=== PATIENT | male | born 1950 | race African-American/Black ===

== ENCOUNTER 2017-10-10 10:18 | Emergency (ER) | payer MEDICARE, MEDICAID ==
[~2017-10-10] VITALS: Ht 172.7 cm; Wt 64.0 kg
[~2017-10-10 10:18] MED LIST: vitamins
[2017-10-10] MEDS ORDERED: KETOROLAC 15MG/ML VIAL IV ONE (14:30)
[2017-10-10] MEDS ORDERED: SODIUM CHLORIDE 0.9% 500 ML IV ONE (14:30)
[2017-10-10 14:36] LABS: CLARITY URINE CLEAR (CLEAR); COLOR URINE YELLOW (YELLOW); KETONES URINE NEGATIVE (NEGATIVE); LEUKOCYTE ESTERASE URINE NEGATIVE (NEGATIVE); NITRITE URINE NEGATIVE (NEGATIVE); OCCULT BLOOD URINE NEGATIVE (NEGATIVE); PROTEIN URINE NEGATIVE (NEGATIVE); SPECIFIC GRAVITY URINE 1.012 (1.005-1.030)
[2017-10-10 15:04] LABS: BASOPHILS % 0.5 % (0.0-2.0); EOSINOPHILS % 2.1 % (0.0-5.0); HEMATOCRIT. 41.1 % (42.0-52.0); HEMOGLOBIN. 13.6 g/dL (14.0-18.0); LYMPHOCYTES % 38.6 % (20.0-50.0); MEAN CORPUSCULAR HEMOGLOBIN 28.8 pg (28.0-32.0); MEAN CORPUSCULAR VOLUME 86.8 fL (80.0-94.0); MEAN PLATELET VOLUME 9.5 fl (7.4-10.4); NEUTROPHILS % 48.8 % (40.0-76.0); PLATELET 186 x1000/uL (130-400); RED BLOOD CELL COUNT 4.73 mill/uL (4.7-6.1); RED CELL DISTRIBUTION WIDTH 13.4 % (11.6-14.6)
[2017-10-10 15:13] LABS: CHLORIDE 107 mEq/L (98-107)
[2017-10-10] MEDS ORDERED: MAGNESIUM HYDROXIDE 400MG/5ML 30ML UDC PO ONE (16:15)
[2017-10-10 17:14] VITALS: BP 142/79
== END 2017-10-10 17:29 | disposition home or self-care (01) ==
LOC: ER 11:01
DX: R33.8 Other retention of urine (principal); N20.0 Calculus of kidney; K59.00 Constipation, unspecified; N40.0 Benign prostatic hyperplasia without lower urinary tract symptoms; F20.9 Schizophrenia, unspecified; F17.200 Nicotine dependence, unspecified, uncomplicated; B19.20 Unspecified viral hepatitis C without hepatic coma
CPT/HCPCS: 36415; 74176; 80053; 81003; 85025; 96361; 96374; 99285; J1885; J7040; J7050

== ENCOUNTER 2018-07-21 07:19 | Inpatient (IN) | payer MEDICARE, MEDICAID ==
[~2018-07-21] VITALS: Ht 172.7 cm; Wt 49.0 kg
[2018-07-21] MEDS ORDERED: SODIUM CHLORIDE 0.9% 2,000 ML IV ONE (09:08)
[2018-07-21] MEDS ORDERED: ONDANSETRON HCL 4MG/2ML INJ IV ONE (09:15)
[2018-07-21 09:42] LABS: BASOPHILS % 0.3 % (0.0-2.0); EOSINOPHILS % 0.7 % (0.0-5.0); HEMATOCRIT. 47.2 % (42.0-52.0); HEMOGLOBIN. 16.2 g/dL (14.0-18.0); LYMPHOCYTES % 18.1 % (20.0-50.0); MEAN CORPUSCULAR HEMOGLOBIN 30.3 pg (28.0-32.0); MEAN CORPUSCULAR VOLUME 88.3 fL (80.0-94.0); MEAN PLATELET VOLUME 9.8 fl (7.4-10.4); MONOCYTES % 11.2 % (2.0-8.0); NEUTROPHILS % 69.7 % (40.0-76.0); PLATELET 214 x1000/uL (130-400); RED BLOOD CELL COUNT 5.35 mill/uL (4.7-6.1); RED CELL DISTRIBUTION WIDTH 12.8 % (11.6-14.6)
[2018-07-21 09:49] LABS: CHLORIDE 103 mEq/L (98-107)
[2018-07-21 09:54] LABS: ETHANOL BLOOD < 10 mg/dL; INR 1.1; PROTHROMBIN TIME 10.6 sec (9.1-11.1)
[2018-07-21] MEDS ORDERED: ASPIRIN 325MG TABLET PO ONE (10:45)
[2018-07-21] MEDS ORDERED: NA PHOS,M-B/NA PHOS,DI-BA ENEMA 118ML PR PRN (11:15)
[2018-07-21 16:19] LABS: CLARITY URINE CLEAR (CLEAR); COLOR URINE DARK YELLOW (YELLOW); KETONES URINE 1+ (NEGATIVE); LEUKOCYTE ESTERASE URINE NEGATIVE (NEGATIVE); NITRITE URINE NEGATIVE (NEGATIVE); OCCULT BLOOD URINE NEGATIVE (NEGATIVE); PH URINE 5.5 (4.5-8.0); PROTEIN URINE TRACE (NEGATIVE)
[2018-07-21 16:49] LABS: *AMPHETAMINES SCREEN URINE NEGATIVE (NEGATIVE); *BARBITURATES SCREEN URINE NEGATIVE (NEGATIVE); *BENZODIAZEPINES SCREEN URINE NEGATIVE (NEGATIVE); *COCAINE SCREEN URINE PRESUMTIVE POSITIVE (NEGATIVE)
[2018-07-21 16:50] LABS: CANNABINOID URINE SCREEN NEGATIVE (NEGATIVE); METHADONE URINE SCREEN NEGATIVE (NEGATIVE); OPIATES URINE SCREEN NEGATIVE (NEGATIVE); PHENCYCLIDINE URINE SCREEN NEGATIVE (NEGATIVE)
[2018-07-21 19:49] LABS: CREATINE KINASE MB FRACTION 3.8 ng/mL (0.5-3.6)
[2018-07-21] MEDS ORDERED: ZOLPIDEM TARTRATE 5MG TABLET PO PRN (21:00)
[2018-07-21] MEDS ORDERED: ENOXAPARIN 60MG/0.6ML SYR SUBCUT SCH (21:00)
[2018-07-21] MEDS ORDERED: TRAMADOL 50MG TABLET PO PRN (21:25)
[2018-07-21] MEDS ORDERED: NITROGLYCERIN 0.4MG TABLET SL SL PRN (21:25)
[2018-07-21] MEDS ORDERED: ACETAMINOPHEN 325MG TABLET PO PRN (21:25)
[2018-07-21] MEDS ORDERED: ONDANSETRON HCL 4MG/2ML INJ IV PRN (21:25)
[2018-07-21] MEDS ORDERED: MAGNESIUM/ALUMINUM HYDROXIDE/SIMETHICONE 30ML UDC PO PRN (21:26)
[2018-07-21] MEDS ORDERED: CLONIDINE 0.1MG TABLET PO PRN (21:26)
[2018-07-21] MEDS ORDERED: GUAIFENESIN 200MG/10ML SUGAR FREE UDC PO PRN (21:26)
[2018-07-21] MEDS ORDERED: DEXTROSE 50% WATER 50ML SYRINGE IV PRN (21:26)
[2018-07-21] MEDS ORDERED: IPRATROPIUM/ALBUTEROL 0.5-3(2.5)MG/3ML NEB INH PRN (21:26)
[2018-07-21 23:24] LABS: CREATINE KINASE MB FRACTION 3.2 ng/mL (0.5-3.6)
[2018-07-22 06:27] LABS: CHLORIDE 107 mEq/L (98-107)
[2018-07-22 06:32] LABS: HEMATOCRIT. 44.2 % (42.0-52.0); HEMOGLOBIN. 15.1 g/dL (14.0-18.0); MEAN CORPUSCULAR HEMOGLOBIN 30.1 pg (28.0-32.0); MEAN CORPUSCULAR VOLUME 88.2 fL (80.0-94.0); MEAN PLATELET VOLUME 9.9 fl (7.4-10.4); PLATELET 193 x1000/uL (130-400); RED BLOOD CELL COUNT 5.01 mill/uL (4.7-6.1); RED CELL DISTRIBUTION WIDTH 13.1 % (11.6-14.6)
[2018-07-22 08:26] LABS: PLATELET ESTIMATE NORMAL
[2018-07-22 10:11] VITALS: BP 140/84
[2018-07-22 10:22] VITALS: BP 140/84
[2018-07-22] MEDS ORDERED: MORPHINE SULFATE 4 MG/ML CPJ (NOT FOR IM USE) IV PRN (10:52)
[2018-07-22] MEDS ORDERED: ENOXAPARIN 60MG/0.6ML SYR SUBCUT SCH (11:15)
[2018-07-22] MEDS: BLOOD SUGAR DIAGNOSTIC STRIP TEST SCH ×3 (12:38→20:57)
[2018-07-22] MEDS: INSULIN LISPRO 100 UNITS/ML SUBCUT SCH ×3 (13:43→20:57)
[2018-07-22 13:45] VITALS: BP 135/77
[2018-07-22] MEDS: DUTASTERIDE 0.5MG CAPSULE PO SCH (13:46)
[2018-07-22] MEDS: TAMSULOSIN HCL 0.4MG SR CAPSULE PO SCH (13:46)
[2018-07-22] MEDS: ASPIRIN 325MG EC TABLET PO SCH (13:46)
[2018-07-22] MEDS: FAMOTIDINE 20MG TABLET PO SCH ×2 (13:46→20:56)
[2018-07-22] MEDS: METOPROLOL TARTRATE 25MG TABLET PO SCH ×2 (13:46→20:57)
[2018-07-22 15:36] VITALS: BP 120/76
[2018-07-22 20:00] VITALS: BP 119/74
[2018-07-22] MEDS: ENOXAPARIN 60MG/0.6ML SYR SUBCUT SCH (20:58)
[2018-07-23] VITALS: BP 124/71
[2018-07-23 04:00] VITALS: BP 124/71
[2018-07-23] MEDS: BLOOD SUGAR DIAGNOSTIC STRIP TEST SCH ×3 (06:45→21:57)
[2018-07-23] MEDS: INSULIN LISPRO 100 UNITS/ML SUBCUT SCH ×3 (07:15→21:00)
[2018-07-23 07:16] LABS: BASOPHILS % 0.6 % (0.0-2.0); EOSINOPHILS % 2.7 % (0.0-5.0); HEMATOCRIT. 43.3 % (42.0-52.0); HEMOGLOBIN. 14.8 g/dL (14.0-18.0); LYMPHOCYTES % 53.4 % (20.0-50.0); MEAN CORPUSCULAR VOLUME 87.6 fL (80.0-94.0); MEAN PLATELET VOLUME 9.7 fl (7.4-10.4); MONOCYTES % 13.2 % (2.0-8.0); NEUTROPHILS % 30.1 % (40.0-76.0); PLATELET 179 x1000/uL (130-400); RED BLOOD CELL COUNT 4.94 mill/uL (4.7-6.1); RED CELL DISTRIBUTION WIDTH 12.7 % (11.6-14.6)
[2018-07-23 08:00] VITALS: BP 112/70
[2018-07-23] MEDS: DUTASTERIDE 0.5MG CAPSULE PO SCH (09:30)
[2018-07-23] MEDS: TAMSULOSIN HCL 0.4MG SR CAPSULE PO SCH (09:30)
[2018-07-23] MEDS: METOPROLOL TARTRATE 25MG TABLET PO SCH ×2 (09:31→21:58)
[2018-07-23] MEDS: ASPIRIN 325MG EC TABLET PO SCH (09:31)
[2018-07-23] MEDS: FAMOTIDINE 20MG TABLET PO SCH ×2 (09:32→21:57)
[2018-07-23] MEDS: ENOXAPARIN 60MG/0.6ML SYR SUBCUT SCH ×2 (09:32→21:58)
[2018-07-23 12:00] VITALS: BP 119/69
[2018-07-23 14:51] LABS: CHLORIDE 106 mEq/L (98-107)
[2018-07-23 16:00] VITALS: BP 123/68
[2018-07-23 20:00] VITALS: BP 112/60
[2018-07-24] VITALS (7 sets, daily range): BP systolic 115–144; BP diastolic 68–86
[2018-07-24] MEDS: BLOOD SUGAR DIAGNOSTIC STRIP TEST SCH ×4 (06:31→20:38)
[2018-07-24] MEDS: INSULIN LISPRO 100 UNITS/ML SUBCUT SCH ×4 (06:32→20:38)
[2018-07-24 08:04] LABS: BASOPHILS % 0.5 % (0.0-2.0); EOSINOPHILS % 2.5 % (0.0-5.0); HEMATOCRIT. 39.2 % (42.0-52.0); HEMOGLOBIN. 13.6 g/dL (14.0-18.0); LYMPHOCYTES % 29.3 % (20.0-50.0); MEAN CORPUSCULAR HEMOGLOBIN 30.3 pg (28.0-32.0); MEAN CORPUSCULAR VOLUME 87.2 fL (80.0-94.0); MONOCYTES % 12.2 % (2.0-8.0); NEUTROPHILS % 55.5 % (40.0-76.0); PLATELET 172 x1000/uL (130-400); RED CELL DISTRIBUTION WIDTH 12.6 % (11.6-14.6)
[2018-07-24] MEDS: DUTASTERIDE 0.5MG CAPSULE PO SCH (09:06)
[2018-07-24] MEDS: ASPIRIN 325MG EC TABLET PO SCH (09:07)
[2018-07-24] MEDS: METOPROLOL TARTRATE 25MG TABLET PO SCH ×2 (09:07→20:38)
[2018-07-24] MEDS: TAMSULOSIN HCL 0.4MG SR CAPSULE PO SCH (09:07)
[2018-07-24] MEDS: FAMOTIDINE 20MG TABLET PO SCH ×2 (09:07→20:38)
[2018-07-24] MEDS: ENOXAPARIN 60MG/0.6ML SYR SUBCUT SCH ×2 (09:08→20:39)
[2018-07-24 10:28] LABS: CHLORIDE 104 mEq/L (98-107)
[2018-07-24] MEDS: DOCUSATE SODIUM 100MG CAPSULE PO PRN (16:45)
[2018-07-25] VITALS: BP 130/78
[2018-07-25 04:00] VITALS: BP 128/57
[2018-07-25] MEDS: BLOOD SUGAR DIAGNOSTIC STRIP TEST SCH ×3 (06:16→17:21)
[2018-07-25] MEDS: INSULIN LISPRO 100 UNITS/ML SUBCUT SCH ×3 (06:16→17:15)
[2018-07-25 08:00] VITALS: BP 146/80
[2018-07-25] MEDS: ENOXAPARIN 60MG/0.6ML SYR SUBCUT SCH (09:53)
[2018-07-25] MEDS: FAMOTIDINE 20MG TABLET PO SCH (09:54)
[2018-07-25] MEDS: ASPIRIN 325MG EC TABLET PO SCH (09:54)
[2018-07-25] MEDS: DUTASTERIDE 0.5MG CAPSULE PO SCH (09:54)
[2018-07-25] MEDS: METOPROLOL TARTRATE 25MG TABLET PO SCH (09:54)
[2018-07-25] MEDS: TAMSULOSIN HCL 0.4MG SR CAPSULE PO SCH (09:54)
[2018-07-25] MEDS: DOCUSATE SODIUM 100MG CAPSULE PO PRN ×2 (09:54→17:31)
[2018-07-25 12:00] VITALS: BP 120/73
[2018-07-25 16:00] VITALS: BP 121/76
[2018-07-25 16:49] VITALS: BP 121/76
== END 2018-07-25 17:50 | disposition home or self-care (01) | DRG 816 ==
LOC: ER 07:19 → SUPCPDRO 11:10 → EDBEDREQ 12:04 → ENRESERV 07-22 09:09 → 5WST 07-22 09:48
PROVIDERS: ADMIT Internal Medicine; ATTEND Internal Medicine
DX: T40.5X1A Poisoning by cocaine, accidental (unintentional), initial encounter (principal); I21.4 Non-ST elevation (NSTEMI) myocardial infarction; N17.0 Acute kidney failure with tubular necrosis; E43 Unspecified severe protein-calorie malnutrition; G93.40 Encephalopathy, unspecified; K75.9 Inflammatory liver disease, unspecified; E11.22 Type 2 diabetes mellitus with diabetic chronic kidney disease; E88.09 Other disorders of plasma-protein metabolism, not elsewhere classified; I20.1 Angina pectoris with documented spasm; F14.10 Cocaine abuse, uncomplicated; F17.210 Nicotine dependence, cigarettes, uncomplicated; I12.9 Hypertensive chronic kidney disease with stage 1 through stage 4 chronic kidney disease, or unspecified chronic kidney disease; N18.9 Chronic kidney disease, unspecified; F20.9 Schizophrenia, unspecified; N40.0 Benign prostatic hyperplasia without lower urinary tract symptoms; Z86.73 Personal history of transient ischemic attack (TIA), and cerebral infarction without residual deficits; Z71.51 Drug abuse counseling and surveillance of drug abuser; Y92.89 Other specified places as the place of occurrence of the external cause; Z68.1 Body mass index [BMI] 19.9 or less, adult; Z71.6 Tobacco abuse counseling
CPT/HCPCS: 36415; 71045; 74176; 80048; 80061; 80305; 82550; 82553; 82962; 83036; 83605; 84484; 93005; 93306; 93970; 96361; 96374; 97116; 97162; 97166; 97530; 99285; G0482; J1650; J1815; J2405; J7030

== ENCOUNTER 2018-08-07 06:07 | Emergency (ER) | payer MEDICARE, MEDICAID ==
[~2018-08-07] VITALS: Ht 172.7 cm; Wt 68.0 kg
[2018-08-07] MEDS ORDERED: ACETAMINOPHEN 325MG TABLET PO STA (06:52)
[2018-08-07] MEDS ORDERED: TETANUS, DIPHTHERIA, PERTUSSIS VAC/PF 0.5ML (>7YR OLD) IM ONE (07:15)
[2018-08-07] MEDS ORDERED: BACITRACIN ZINC OINT UDPKT TOP ONE (07:15)
[2018-08-07 07:22] LABS: BASOPHILS % 0.5 % (0.0-2.0); EOSINOPHILS % 1.3 % (0.0-5.0); HEMATOCRIT. 39.4 % (42.0-52.0); HEMOGLOBIN. 13.3 g/dL (14.0-18.0); LYMPHOCYTES % 18.9 % (20.0-50.0); MEAN CORPUSCULAR HEMOGLOBIN 29.8 pg (28.0-32.0); MEAN CORPUSCULAR VOLUME 88.3 fL (80.0-94.0); MEAN PLATELET VOLUME 9.9 fl (7.4-10.4); MONOCYTES % 10.9 % (2.0-8.0); NEUTROPHILS % 68.4 % (40.0-76.0); PLATELET 219 x1000/uL (130-400); RED BLOOD CELL COUNT 4.46 mill/uL (4.7-6.1); RED CELL DISTRIBUTION WIDTH 12.5 % (11.6-14.6)
[2018-08-07 07:32] LABS: CHLORIDE 108 mEq/L (98-107)
[2018-08-07 07:37] LABS: ETHANOL BLOOD < 10 mg/dL
[2018-08-07 08:47] LABS: CLARITY URINE CLEAR (CLEAR); COLOR URINE YELLOW (YELLOW); KETONES URINE NEGATIVE (NEGATIVE); LEUKOCYTE ESTERASE URINE NEGATIVE (NEGATIVE); NITRITE URINE NEGATIVE (NEGATIVE); OCCULT BLOOD URINE 3+ (NEGATIVE); PH URINE 7.5 (4.5-8.0); PROTEIN URINE NEGATIVE (NEGATIVE); SPECIFIC GRAVITY URINE 1.011 (1.005-1.030)
[2018-08-07] MEDS ORDERED: AMOXICILLIN/POTASSIUM CLAVULANATE 875/125MG TAB PO ONE (09:15)
[2018-08-07 09:36] LABS: CANNABINOID URINE SCREEN NEGATIVE (NEGATIVE); PHENCYCLIDINE URINE SCREEN NEGATIVE (NEGATIVE)
[2018-08-07 09:37] LABS: *AMPHETAMINES SCREEN URINE NEGATIVE (NEGATIVE); *BARBITURATES SCREEN URINE NEGATIVE (NEGATIVE); *BENZODIAZEPINES SCREEN URINE NEGATIVE (NEGATIVE); *COCAINE SCREEN URINE PRESUMTIVE POSITIVE (NEGATIVE); METHADONE URINE SCREEN NEGATIVE (NEGATIVE); OPIATES URINE SCREEN NEGATIVE (NEGATIVE)
[2018-08-07] MEDS ORDERED: SODIUM CHLORIDE 0.9% 1,000 ML IV ONE (11:38)
[2018-08-07] MEDS ORDERED: PIPERACILLIN/TAZ 3.375G PREMIX 50 ML IV ONE (20:15)
[2018-08-07] MEDS ORDERED: VANCOMYCIN 1 G PREMIX 200 ML IV ONE (20:15)
[2018-08-07] MEDS ORDERED: SODIUM CHLORIDE 0.9% 1000ML BAG (SEPSIS BOLUS) IV ONE (20:15)
[2018-08-07 21:37] LABS: BASOPHILS % 0.3 % (0.0-2.0); EOSINOPHILS % 1.1 % (0.0-5.0); HEMATOCRIT. 39.3 % (42.0-52.0); HEMOGLOBIN. 13.1 g/dL (14.0-18.0); LYMPHOCYTES % 17.6 % (20.0-50.0); MEAN CORPUSCULAR HEMOGLOBIN 29.5 pg (28.0-32.0); MEAN CORPUSCULAR VOLUME 88.4 fL (80.0-94.0); MONOCYTES % 12.1 % (2.0-8.0); NEUTROPHILS % 68.9 % (40.0-76.0); PLATELET 244 x1000/uL (130-400); RED BLOOD CELL COUNT 4.45 mill/uL (4.7-6.1); RED CELL DISTRIBUTION WIDTH 12.7 % (11.6-14.6)
[2018-08-07 21:41] LABS: CHLORIDE 110 mEq/L (98-107)
[2018-08-07] MEDS ORDERED: IOHEXOL-300 100 ML BOTTLE ONE (21:57)
[2018-08-08 15:07] VITALS: BP 136/87
[2018-08-17] MEDS ORDERED: ATOR10TA PO (16:44)
== END 2018-08-08 15:41 | disposition home or self-care (01) ==
LOC: ER 06:07 → CANBEDREQ 22:44 → ER 08-08 15:41
DX: S02.2XXA Fracture of nasal bones, initial encounter for closed fracture (principal); S02.40CA Maxillary fracture, right side, initial encounter for closed fracture; S02.81XA Fracture of other specified skull and facial bones, right side, initial encounter for closed fracture; S30.0XXA Contusion of lower back and pelvis, initial encounter; S60.512A Abrasion of left hand, initial encounter; S09.90XA Unspecified injury of head, initial encounter; I95.89 Other hypotension; F20.9 Schizophrenia, unspecified; E11.9 Type 2 diabetes mellitus without complications; I10 Essential (primary) hypertension; M19.90 Unspecified osteoarthritis, unspecified site; F17.200 Nicotine dependence, unspecified, uncomplicated; M25.552 Pain in left hip; F14.10 Cocaine abuse, uncomplicated; R45.850 Homicidal ideations; Y04.0XXA Assault by unarmed brawl or fight, initial encounter; Y93.89 Activity, other specified; Y92.018 Other place in single-family (private) house as the place of occurrence of the external cause
CPT/HCPCS: 36415; 70450; 70486; 72125; 73502; 74177; 80053; 80305; 80307; 80329; 81003; 82962; 83605; 84145; 84484; 85025; 87040; 90715; 93005; 96361; 96365; 96366; 96368; 99285; G0482; J2543; J3370; J7030; Q9967; A4315

== ENCOUNTER 2018-08-15 13:59 | Inpatient (IN) | payer MEDICARE, MEDICAID ==
[~2018-08-15] VITALS: Ht 172.7 cm; Wt 50.3 kg
[2018-08-15] MEDS ORDERED: SODIUM CHLORIDE 0.9% 1,000 ML IV ONE (15:57)
[2018-08-15] MEDS ORDERED: FLUORESCEIN SODIUM 1MG/STRIP OP ONE (16:00)
[2018-08-15] MEDS ORDERED: TETRACAINE 0.5% OPHTH DROPS 4ML OP ONE (16:00)
[2018-08-15 16:14] LABS: BASOPHILS % 0.6 % (0.0-2.0); EOSINOPHILS % 0.8 % (0.0-5.0); HEMATOCRIT. 38.2 % (42.0-52.0); HEMOGLOBIN. 12.9 g/dL (14.0-18.0); LYMPHOCYTES % 37.2 % (20.0-50.0); MEAN CORPUSCULAR HEMOGLOBIN 29.7 pg (28.0-32.0); MONOCYTES % 11.6 % (2.0-8.0); NEUTROPHILS % 49.8 % (40.0-76.0); PLATELET 223 x1000/uL (130-400); RED BLOOD CELL COUNT 4.34 mill/uL (4.7-6.1); RED CELL DISTRIBUTION WIDTH 12.8 % (11.6-14.6)
[2018-08-15 16:17] LABS: CHLORIDE 106 mEq/L (98-107)
[2018-08-15 16:21] LABS: INR 1.1; PROTHROMBIN TIME 10.7 sec (9.1-11.1)
[2018-08-15 17:03] LABS: CLARITY URINE CLEAR (CLEAR); COLOR URINE YELLOW (YELLOW); KETONES URINE TRACE (NEGATIVE); LEUKOCYTE ESTERASE URINE NEGATIVE (NEGATIVE); NITRITE URINE NEGATIVE (NEGATIVE); OCCULT BLOOD URINE NEGATIVE (NEGATIVE); PH URINE 5.5 (4.5-8.0); PROTEIN URINE NEGATIVE (NEGATIVE); SPECIFIC GRAVITY URINE 1.027 (1.005-1.030)
[2018-08-15] MEDS ORDERED: ACETAMINOPHEN 650MG SUPP PR PRN (21:15)
[2018-08-15] MEDS ORDERED: MAGNESIUM/ALUMINUM HYDROXIDE/SIMETHICONE 30ML UDC PO PRN (21:15)
[2018-08-15] MEDS ORDERED: DOCUSATE SODIUM 100MG CAPSULE PO PRN (21:15)
[2018-08-15] MEDS ORDERED: ACETAMINOPHEN 650MG/20.3ML UDC GT PRN (21:15)
[2018-08-15] MEDS ORDERED: IPRATROPIUM/ALBUTEROL 0.5-3(2.5)MG/3ML NEB INH PRN (21:15)
[2018-08-15] MEDS ORDERED: GUAIFENESIN 200MG/10ML SUGAR FREE UDC PO PRN (21:15)
[2018-08-15] MEDS ORDERED: NA PHOS,M-B/NA PHOS,DI-BA ENEMA 118ML PR PRN (21:15)
[2018-08-15] MEDS ORDERED: DIPHENHYDRAMINE 50MG/ML VIAL IV PRN (21:15)
[2018-08-15] MEDS ORDERED: ONDANSETRON HCL 4MG/2ML INJ IV PRN (21:15)
[2018-08-16 02:00] VITALS: BP 114/65
[2018-08-16 04:00] VITALS: BP 137/72
[2018-08-16] MEDS: ACETAMINOPHEN 325MG TABLET PO PRN ×3 (04:22→21:20)
[2018-08-16] MEDS: SODIUM CHLORIDE 0.9% INJ 3ML FLUSH IVF SCH ×3 (06:00→21:11)
[2018-08-16 06:37] LABS: BASOPHILS % 0.4 % (0.0-2.0); EOSINOPHILS % 2.1 % (0.0-5.0); HEMATOCRIT. 35.5 % (42.0-52.0); LYMPHOCYTES % 34.1 % (20.0-50.0); MEAN CORPUSCULAR VOLUME 88.5 fL (80.0-94.0); MEAN PLATELET VOLUME 10.4 fl (7.4-10.4); NEUTROPHILS % 51.4 % (40.0-76.0); PLATELET 220 x1000/uL (130-400); RED BLOOD CELL COUNT 4.01 mill/uL (4.7-6.1); RED CELL DISTRIBUTION WIDTH 12.8 % (11.6-14.6)
[2018-08-16 07:03] LABS: CHLORIDE 107 mEq/L (98-107)
[2018-08-16 07:22] LABS: LDL CHOLESTEROL 90 mg/dL (5-100)
[2018-08-16 07:24] LABS: HDL CHOLESTEROL 49 mg/dL (40-59)
[2018-08-16 08:00] VITALS: BP 125/68
[2018-08-16 08:48] LABS: CLARITY URINE CLOUDY (CLEAR); COLOR URINE YELLOW (YELLOW); KETONES URINE TRACE (NEGATIVE); LEUKOCYTE ESTERASE URINE NEGATIVE (NEGATIVE); NITRITE URINE NEGATIVE (NEGATIVE); OCCULT BLOOD URINE NEGATIVE (NEGATIVE); PROTEIN URINE NEGATIVE (NEGATIVE); SPECIFIC GRAVITY URINE 1.024 (1.005-1.030)
[2018-08-16 09:26] LABS: *AMPHETAMINES SCREEN URINE NEGATIVE (NEGATIVE); *BARBITURATES SCREEN URINE NEGATIVE (NEGATIVE); *BENZODIAZEPINES SCREEN URINE NEGATIVE (NEGATIVE); *COCAINE SCREEN URINE PRESUMTIVE POSITIVE (NEGATIVE)
[2018-08-16 09:27] LABS: CANNABINOID URINE SCREEN NEGATIVE (NEGATIVE); METHADONE URINE SCREEN NEGATIVE (NEGATIVE); OPIATES URINE SCREEN NEGATIVE (NEGATIVE); PHENCYCLIDINE URINE SCREEN NEGATIVE (NEGATIVE)
[2018-08-16 12:00] VITALS: BP 112/61
[2018-08-16 16:00] VITALS: BP 98/59
[2018-08-16 20:00] VITALS: BP 113/69
[2018-08-16] MEDS: INSULIN LISPRO 100 UNITS/ML SUBCUT SCH (21:00)
[2018-08-16] MEDS ORDERED: DEXTROSE 50% WATER 50ML SYRINGE IV PRN (21:00)
[2018-08-16] MEDS: BLOOD SUGAR DIAGNOSTIC STRIP TEST SCH (21:00)
[2018-08-16] MEDS: ATORVASTATIN CALCIUM 10MG TABLET PO SCH (21:11)
[2018-08-17] VITALS: BP 116/66
[2018-08-17 04:00] VITALS: BP 144/67
[2018-08-17] MEDS: SODIUM CHLORIDE 0.9% INJ 3ML FLUSH IVF SCH ×3 (06:32→20:37)
[2018-08-17] MEDS: BLOOD SUGAR DIAGNOSTIC STRIP TEST SCH ×4 (06:34→20:33)
[2018-08-17] MEDS: INSULIN LISPRO 100 UNITS/ML SUBCUT SCH ×4 (06:34→20:32)
[2018-08-17 08:00] VITALS: BP 116/57
[2018-08-17 12:00] VITALS: BP 118/60
[2018-08-17 16:00] VITALS: BP 122/64
[2018-08-17] MEDS ORDERED: ATOR10TA PO (16:44)
[2018-08-17 20:00] VITALS: BP 107/64
[2018-08-17] MEDS: ATORVASTATIN CALCIUM 10MG TABLET PO SCH (20:37)
[2018-08-18] VITALS (7 sets, daily range): BP systolic 104–143; BP diastolic 61–85
[2018-08-18] MEDS: SODIUM CHLORIDE 0.9% INJ 3ML FLUSH IVF SCH ×3 (05:42→21:07)
[2018-08-18] MEDS: INSULIN LISPRO 100 UNITS/ML SUBCUT SCH ×4 (06:59→21:00)
[2018-08-18] MEDS: BLOOD SUGAR DIAGNOSTIC STRIP TEST SCH ×4 (06:59→21:31)
[2018-08-18] MEDS: ACETAMINOPHEN 325MG TABLET PO PRN (11:33)
[2018-08-18] MEDS: ATORVASTATIN CALCIUM 10MG TABLET PO SCH (21:06)
[2018-08-19] VITALS (8 sets, daily range): BP systolic 96–129; BP diastolic 61–72
[2018-08-19] MEDS: SODIUM CHLORIDE 0.9% INJ 3ML FLUSH IVF SCH (05:49)
[2018-08-19] MEDS: BLOOD SUGAR DIAGNOSTIC STRIP TEST SCH ×2 (05:50→12:40)
[2018-08-19] MEDS: INSULIN LISPRO 100 UNITS/ML SUBCUT SCH ×2 (07:58→15:02)
== END 2018-08-19 17:28 | disposition home or self-care (01) | DRG 44 ==
LOC: ER 13:59 → EDBEDREQ 17:23 → 7WST 19:38 → EDBEDREQTM 19:38 → EDBEDREQ 19:38 → ENRESERV 23:43
PROVIDERS: ADMIT Family Medicine; ATTEND Family Medicine
DX: I62.00 Nontraumatic subdural hemorrhage, unspecified (principal); E44.0 Moderate protein-calorie malnutrition; E11.22 Type 2 diabetes mellitus with diabetic chronic kidney disease; F20.9 Schizophrenia, unspecified; R29.6 Repeated falls; R62.7 Adult failure to thrive; I12.9 Hypertensive chronic kidney disease with stage 1 through stage 4 chronic kidney disease, or unspecified chronic kidney disease; N18.9 Chronic kidney disease, unspecified; B19.20 Unspecified viral hepatitis C without hepatic coma; F14.90 Cocaine use, unspecified, uncomplicated; N40.0 Benign prostatic hyperplasia without lower urinary tract symptoms; Z86.73 Personal history of transient ischemic attack (TIA), and cerebral infarction without residual deficits; T40.5X5A Adverse effect of cocaine, initial encounter; D63.8 Anemia in other chronic diseases classified elsewhere; F17.210 Nicotine dependence, cigarettes, uncomplicated; I25.2 Old myocardial infarction; Z91.14 Patient's other noncompliance with medication regimen; Z79.899 Other long term (current) drug therapy; Y92.89 Other specified places as the place of occurrence of the external cause; Z68.1 Body mass index [BMI] 19.9 or less, adult
CPT/HCPCS: 36415; 70551; 71045; 80061; 80305; 82962; 84484; 85651; 86850; 86900; 93005; 96360; 96361; 97116; 97162; 99291; J7030

== ENCOUNTER 2018-09-03 15:53 | Emergency (ER) | payer MEDICARE, MEDICAID ==
[~2018-09-03] VITALS: Ht 172.7 cm; Wt 52.0 kg
[~2018-09-03 15:53] MED LIST changes: +ATOR10TA PO; -vitamins
[2018-09-03 18:24] VITALS: BP 137/80
[2018-09-03 18:26] LABS: BASOPHILS % 0.7 % (0.0-2.0); EOSINOPHILS % 0.9 % (0.0-5.0); HEMATOCRIT. 41.7 % (42.0-52.0); HEMOGLOBIN. 13.8 g/dL (14.0-18.0); LYMPHOCYTES % 31.5 % (20.0-50.0); MEAN CORPUSCULAR HEMOGLOBIN 29.9 pg (28.0-32.0); MEAN CORPUSCULAR VOLUME 90.2 fL (80.0-94.0); MEAN PLATELET VOLUME 9.9 fl (7.4-10.4); MONOCYTES % 10.2 % (2.0-8.0); NEUTROPHILS % 56.7 % (40.0-76.0); PLATELET 204 x1000/uL (130-400); RED BLOOD CELL COUNT 4.63 mill/uL (4.7-6.1); RED CELL DISTRIBUTION WIDTH 13.8 % (11.6-14.6)
[2018-09-03 18:29] LABS: CHLORIDE 109 mEq/L (98-107)
[2018-09-03 18:30] LABS: INR 1.1; PROTHROMBIN TIME 10.6 sec (9.1-11.1)
[2018-09-03 18:33] LABS: ETHANOL BLOOD < 10 mg/dL
[2018-09-03] MEDS ORDERED: SODIUM CHLORIDE 0.9% 500 ML IV ONE (19:34)
[2018-09-16 14:17] LABS: BARBITURATE SCREEN Negative ug/mL (Cutoff:0.1); BENZODIAZEPINE SCREEN Negative ng/mL (Cutoff:20); OPIATES SCREEN Negative ng/mL (Cutoff:5); PHENCYCLIDINE SCREEN Negative ng/mL (Cutoff:8)
== END 2018-09-03 22:25 | disposition left against medical advice (07) ==
LOC: ER 15:53 → EDBEDREQ 17:44 → CANBEDREQ 19:03 → ER 22:25
DX: R55 Syncope and collapse (principal); E11.65 Type 2 diabetes mellitus with hyperglycemia; I10 Essential (primary) hypertension; M19.90 Unspecified osteoarthritis, unspecified site; F17.200 Nicotine dependence, unspecified, uncomplicated; Z98.890 Other specified postprocedural states
CPT/HCPCS: 36415; 70450; 71045; 80053; 80307; 82962; 84484; 85025; 85610; 85730; 93005; 96360; 99284; 99406; G0482; J7040

== ENCOUNTER 2018-09-12 15:16 | Inpatient (IN) | payer MEDICARE, MEDICAID ==
[~2018-09-12] VITALS: Ht 167.6 cm; Wt 55.8 kg
[2018-09-12] MEDS ORDERED: SODIUM CHLORIDE 0.9% 1,000 ML IV ONE (17:19)
[2018-09-12 17:50] LABS: BASOPHILS % 0.7 % (0.0-2.0); EOSINOPHILS % 0.5 % (0.0-5.0); HEMATOCRIT. 42.9 % (42.0-52.0); HEMOGLOBIN. 14.4 g/dL (14.0-18.0); LYMPHOCYTES % 31.1 % (20.0-50.0); MEAN CORPUSCULAR VOLUME 89.3 fL (80.0-94.0); MEAN PLATELET VOLUME 10.3 fl (7.4-10.4); MONOCYTES % 8.7 % (2.0-8.0); PLATELET 193 x1000/uL (130-400); RED BLOOD CELL COUNT 4.81 mill/uL (4.7-6.1); RED CELL DISTRIBUTION WIDTH 13.6 % (11.6-14.6)
[2018-09-12 17:55] LABS: CHLORIDE 107 mEq/L (98-107)
[2018-09-12 17:59] LABS: ETHANOL BLOOD < 10 mg/dL
[2018-09-12 18:03] LABS: CREATINE KINASE 78 IU/L (39-308)
[2018-09-12 18:09] LABS: INR 1.1; PROTHROMBIN TIME 10.7 sec (9.1-11.1)
[2018-09-12 18:29] LABS: CLARITY URINE CLEAR (CLEAR); COLOR URINE DARK YELLOW (YELLOW); KETONES URINE TRACE (NEGATIVE); LEUKOCYTE ESTERASE URINE NEGATIVE (NEGATIVE); NITRITE URINE NEGATIVE (NEGATIVE); OCCULT BLOOD URINE NEGATIVE (NEGATIVE); PROTEIN URINE TRACE (NEGATIVE)
[2018-09-12 18:40] LABS: *AMPHETAMINES SCREEN URINE NEGATIVE (NEGATIVE); *BARBITURATES SCREEN URINE NEGATIVE (NEGATIVE); *BENZODIAZEPINES SCREEN URINE NEGATIVE (NEGATIVE); *COCAINE SCREEN URINE PRESUMTIVE POSITIVE (NEGATIVE); METHADONE URINE SCREEN NEGATIVE (NEGATIVE)
[2018-09-12 18:41] LABS: CANNABINOID URINE SCREEN NEGATIVE (NEGATIVE); OPIATES URINE SCREEN NEGATIVE (NEGATIVE); PHENCYCLIDINE URINE SCREEN NEGATIVE (NEGATIVE)
[2018-09-12] MEDS ORDERED: TETRACAINE 0.5% OPHTH DROPS 4ML BOTHEYE ONE (21:45)
[2018-09-12] MEDS ORDERED: IOHEXOL-350 100 ML BOTTLE ONE (23:26)
[2018-09-13 03:00] VITALS: BP 160/83
[2018-09-13 03:10] VITALS: BP 160/83
[2018-09-13 04:00] VITALS: BP 145/72
[2018-09-13] MEDS ORDERED: MAGNESIUM/ALUMINUM HYDROXIDE/SIMETHICONE 30ML UDC PO PRN (06:30)
[2018-09-13] MEDS ORDERED: DOCUSATE SODIUM 100MG CAPSULE PO PRN (06:30)
[2018-09-13] MEDS ORDERED: GUAIFENESIN 200MG/10ML SUGAR FREE UDC PO PRN (06:30)
[2018-09-13] MEDS ORDERED: ONDANSETRON HCL 4MG/2ML INJ IV PRN (06:30)
[2018-09-13] MEDS ORDERED: IPRATROPIUM/ALBUTEROL 0.5-3(2.5)MG/3ML NEB INH PRN (06:30)
[2018-09-13] MEDS ORDERED: CLONIDINE 0.1MG TABLET PO PRN (06:30)
[2018-09-13] MEDS ORDERED: LORAZEPAM 2MG/ML CPJ IV PRN (06:30)
[2018-09-13] MEDS ORDERED: DIPHENHYDRAMINE 50MG/ML VIAL IV PRN (06:30)
[2018-09-13] MEDS ORDERED: HYDROMORPHONE HCL/PF 2MG/ML CPJ IV PRN (06:30)
[2018-09-13] MEDS ORDERED: HYDROCODONE/ACETAMINOPHEN 5/325MG TABLET PO PRN (06:30)
[2018-09-13] MEDS ORDERED: ACETAMINOPHEN 325MG TABLET PO PRN (06:30)
[2018-09-13] MEDS ORDERED: NA PHOS,M-B/NA PHOS,DI-BA ENEMA 118ML PR PRN (06:30)
[2018-09-13] MEDS ORDERED: DEXTROSE 50% WATER 50ML SYRINGE IV PRN (06:45)
[2018-09-13] MEDS: BLOOD SUGAR DIAGNOSTIC STRIP TEST SCH ×4 (06:55→20:31)
[2018-09-13] MEDS: INSULIN LISPRO 100 UNITS/ML SUBCUT SCH ×4 (06:55→20:31)
[2018-09-13 11:10] VITALS: BP 144/80
[2018-09-13] MEDS: ASPIRIN 81MG EC TABLET PO SCH ×2 (11:28→11:29)
[2018-09-13] MEDS: ENOXAPARIN 40MG/0.4ML SYR SUBCUT SCH (11:30)
[2018-09-13 20:00] VITALS: BP 135/79
[2018-09-14] VITALS: BP 151/78
[2018-09-14 04:00] VITALS: BP 141/73
[2018-09-14] MEDS: SODIUM CHLORIDE 0.45% 1,000 ML IV SCH (06:14)
[2018-09-14] MEDS: INSULIN LISPRO 100 UNITS/ML SUBCUT SCH ×4 (06:14→21:00)
[2018-09-14] MEDS: BLOOD SUGAR DIAGNOSTIC STRIP TEST SCH ×4 (06:14→21:40)
[2018-09-14 07:10] LABS: BASOPHILS % 0.4 % (0.0-2.0); EOSINOPHILS % 1.7 % (0.0-5.0); HEMOGLOBIN. 12.8 g/dL (14.0-18.0); LYMPHOCYTES % 47.3 % (20.0-50.0); MEAN CORPUSCULAR HEMOGLOBIN 29.9 pg (28.0-32.0); MEAN CORPUSCULAR VOLUME 89.1 fL (80.0-94.0); MEAN PLATELET VOLUME 10.6 fl (7.4-10.4); MONOCYTES % 12.1 % (2.0-8.0); NEUTROPHILS % 38.5 % (40.0-76.0); PLATELET 165 x1000/uL (130-400); RED BLOOD CELL COUNT 4.26 mill/uL (4.7-6.1); RED CELL DISTRIBUTION WIDTH 13.5 % (11.6-14.6)
[2018-09-14 07:15] LABS: CHLORIDE 109 mEq/L (98-107)
[2018-09-14 07:31] LABS: HDL CHOLESTEROL 52 mg/dL (40-59); T4 FREE 0.93 ng/dL (0.76-1.46)
[2018-09-14 07:33] LABS: LDL CHOLESTEROL 106 mg/dL (5-100)
[2018-09-14 08:00] VITALS: BP 127/74
[2018-09-14] MEDS: ENOXAPARIN 40MG/0.4ML SYR SUBCUT SCH (09:21)
[2018-09-14 12:00] VITALS: BP 153/78
[2018-09-14 15:49] VITALS: BP 129/75
[2018-09-14 20:00] VITALS: BP 163/76
[2018-09-15] VITALS: BP 149/84
[2018-09-15 04:00] VITALS: BP 163/97
[2018-09-15] MEDS: SODIUM CHLORIDE 0.45% 1,000 ML IV SCH (06:29)
[2018-09-15] MEDS: BLOOD SUGAR DIAGNOSTIC STRIP TEST SCH ×3 (06:41→21:00)
[2018-09-15] MEDS: INSULIN LISPRO 100 UNITS/ML SUBCUT SCH ×3 (06:41→21:00)
[2018-09-15 08:00] VITALS: BP 124/74
[2018-09-15] MEDS: ENOXAPARIN 40MG/0.4ML SYR SUBCUT SCH (09:27)
[2018-09-15] MEDS: ASPIRIN 81MG EC TABLET PO SCH (09:27)
[2018-09-15 16:00] VITALS: BP 111/63
[2018-09-15 20:00] VITALS: BP 127/73
[2018-09-16] VITALS: BP 103/71
[2018-09-16 04:00] VITALS: BP 122/72
[2018-09-16] MEDS: BLOOD SUGAR DIAGNOSTIC STRIP TEST SCH ×4 (06:13→20:36)
[2018-09-16] MEDS: INSULIN LISPRO 100 UNITS/ML SUBCUT SCH ×4 (06:13→20:36)
[2018-09-16 08:00] VITALS: BP 116/46
[2018-09-16] MEDS: ENOXAPARIN 40MG/0.4ML SYR SUBCUT SCH (10:09)
[2018-09-16] MEDS: ASPIRIN 81MG EC TABLET PO SCH (10:09)
[2018-09-16 12:00] VITALS: BP_SYST 118; BP_SYST 124; BP_DIAS 68; BP_DIAS 79
[2018-09-16 16:00] VITALS: BP 126/79
[2018-09-16 20:00] VITALS: BP 130/71
[2018-09-16] MEDS: SODIUM CHLORIDE 0.45% 1,000 ML IV SCH (20:53)
[2018-09-17] VITALS (7 sets, daily range): BP systolic 126–155; BP diastolic 55–93
[2018-09-17] MEDS: BLOOD SUGAR DIAGNOSTIC STRIP TEST SCH ×4 (06:26→20:39)
[2018-09-17] MEDS: INSULIN LISPRO 100 UNITS/ML SUBCUT SCH ×4 (07:40→20:39)
[2018-09-17] MEDS: ASPIRIN 81MG EC TABLET PO SCH (10:01)
[2018-09-17] MEDS: ENOXAPARIN 40MG/0.4ML SYR SUBCUT SCH (10:03)
[2018-09-17] MEDS: SODIUM CHLORIDE 0.45% 1,000 ML IV SCH (10:30)
[2018-09-18] VITALS: BP 143/76
[2018-09-18 04:00] VITALS: BP 137/84
[2018-09-18] MEDS: SODIUM CHLORIDE 0.45% 1,000 ML IV SCH (06:00)
[2018-09-18] MEDS: INSULIN LISPRO 100 UNITS/ML SUBCUT SCH ×4 (06:57→20:53)
[2018-09-18] MEDS: BLOOD SUGAR DIAGNOSTIC STRIP TEST SCH ×4 (06:57→20:50)
[2018-09-18 08:00] VITALS: BP 129/76
[2018-09-18] MEDS: ASPIRIN 81MG EC TABLET PO SCH (09:59)
[2018-09-18] MEDS: ENOXAPARIN 40MG/0.4ML SYR SUBCUT SCH (10:00)
[2018-09-18 12:58] VITALS: BP 133/79
[2018-09-18 16:25] VITALS: BP 110/63
[2018-09-18 20:00] VITALS: BP 109/65
[2018-09-19] VITALS: BP 121/73
[2018-09-19] MEDS: SODIUM CHLORIDE 0.45% 1,000 ML IV SCH ×2 (02:30→22:30)
[2018-09-19 04:00] VITALS: BP 127/72
[2018-09-19] MEDS: BLOOD SUGAR DIAGNOSTIC STRIP TEST SCH ×4 (06:22→20:53)
[2018-09-19] MEDS: INSULIN LISPRO 100 UNITS/ML SUBCUT SCH ×4 (06:23→21:00)
[2018-09-19 08:00] VITALS: BP 121/72
[2018-09-19] MEDS: ASPIRIN 81MG EC TABLET PO SCH (09:14)
[2018-09-19] MEDS: ENOXAPARIN 40MG/0.4ML SYR SUBCUT SCH (09:14)
[2018-09-19 11:45] VITALS: BP 112/65
[2018-09-19 16:00] VITALS: BP 152/86
[2018-09-19 20:00] VITALS: BP 110/39
[2018-09-20] VITALS: BP 140/84
[2018-09-20 04:00] VITALS: BP 131/79
[2018-09-20] MEDS: BLOOD SUGAR DIAGNOSTIC STRIP TEST SCH ×4 (05:42→20:42)
[2018-09-20] MEDS: INSULIN LISPRO 100 UNITS/ML SUBCUT SCH ×4 (06:29→21:00)
[2018-09-20 08:00] VITALS: BP 123/75
[2018-09-20] MEDS: ASPIRIN 81MG EC TABLET PO SCH (08:33)
[2018-09-20] MEDS: ENOXAPARIN 40MG/0.4ML SYR SUBCUT SCH (08:33)
[2018-09-20 12:00] VITALS: BP 131/72
[2018-09-20 16:00] VITALS: BP 107/63
[2018-09-20] MEDS: SODIUM CHLORIDE 0.45% 1,000 ML IV SCH (17:33)
[2018-09-20 20:00] VITALS: BP 116/72
[2018-09-21] VITALS: BP 128/69
[2018-09-21 04:00] VITALS: BP 120/70
[2018-09-21] MEDS: BLOOD SUGAR DIAGNOSTIC STRIP TEST SCH ×4 (06:06→21:00)
[2018-09-21] MEDS: INSULIN LISPRO 100 UNITS/ML SUBCUT SCH ×4 (06:35→21:00)
[2018-09-21 08:32] VITALS: BP 129/72
[2018-09-21] MEDS: ASPIRIN 81MG EC TABLET PO SCH (08:38)
[2018-09-21] MEDS: ENOXAPARIN 40MG/0.4ML SYR SUBCUT SCH (08:39)
[2018-09-21 12:00] VITALS: BP 131/77
[2018-09-21] MEDS: SODIUM CHLORIDE 0.45% 1,000 ML IV SCH (15:09)
[2018-09-21 16:15] VITALS: BP 128/83
[2018-09-21 20:00] VITALS: BP 132/75
[2018-09-22] VITALS: BP 136/72
[2018-09-22 04:00] VITALS: BP 138/71
[2018-09-22] MEDS: BLOOD SUGAR DIAGNOSTIC STRIP TEST SCH ×4 (05:23→20:05)
[2018-09-22] MEDS: INSULIN LISPRO 100 UNITS/ML SUBCUT SCH ×4 (05:39→20:05)
[2018-09-22 08:22] VITALS: BP 137/78
[2018-09-22] MEDS: ENOXAPARIN 40MG/0.4ML SYR SUBCUT SCH (09:09)
[2018-09-22] MEDS: ASPIRIN 81MG EC TABLET PO SCH (09:09)
[2018-09-22] MEDS: SODIUM CHLORIDE 0.45% 1,000 ML IV SCH (11:10)
[2018-09-22 12:46] VITALS: BP 133/83
[2018-09-22 16:11] VITALS: BP 112/65
[2018-09-22 20:00] VITALS: BP 114/75
[2018-09-23] VITALS: BP 114/69
[2018-09-23 04:00] VITALS: BP 130/77
[2018-09-23] MEDS: BLOOD SUGAR DIAGNOSTIC STRIP TEST SCH ×4 (05:24→20:26)
[2018-09-23] MEDS: INSULIN LISPRO 100 UNITS/ML SUBCUT SCH ×4 (05:33→21:00)
[2018-09-23 08:00] VITALS: BP 116/73
[2018-09-23 08:03] LABS: BASOPHILS % 0.8 % (0.0-2.0); EOSINOPHILS % 2.3 % (0.0-5.0); HEMATOCRIT. 37.8 % (42.0-52.0); HEMOGLOBIN. 12.7 g/dL (14.0-18.0); LYMPHOCYTES % 36.7 % (20.0-50.0); MEAN CORPUSCULAR VOLUME 89.4 fL (80.0-94.0); MEAN PLATELET VOLUME 9.9 fl (7.4-10.4); MONOCYTES % 14.5 % (2.0-8.0); NEUTROPHILS % 45.7 % (40.0-76.0); PLATELET 182 x1000/uL (130-400); RED BLOOD CELL COUNT 4.22 mill/uL (4.7-6.1); RED CELL DISTRIBUTION WIDTH 13.6 % (11.6-14.6)
[2018-09-23 08:33] LABS: CHLORIDE 106 mEq/L (98-107)
[2018-09-23] MEDS: ASPIRIN 81MG EC TABLET PO SCH (10:21)
[2018-09-23] MEDS: ENOXAPARIN 40MG/0.4ML SYR SUBCUT SCH (10:21)
[2018-09-23] MEDS: SODIUM CHLORIDE 0.45% 1,000 ML IV SCH (10:22)
[2018-09-23 12:00] VITALS: BP 127/74
[2018-09-23 16:00] VITALS: BP 126/70
[2018-09-24] VITALS: BP 132/78
[2018-09-24 04:00] VITALS: BP 125/77
[2018-09-24] MEDS: BLOOD SUGAR DIAGNOSTIC STRIP TEST SCH ×2 (05:35→12:10)
[2018-09-24] MEDS: SODIUM CHLORIDE 0.45% 1,000 ML IV SCH (05:39)
[2018-09-24] MEDS: INSULIN LISPRO 100 UNITS/ML SUBCUT SCH ×2 (05:40→12:40)
[2018-09-24 08:11] VITALS: BP 115/62
[2018-09-24] MEDS: ASPIRIN 81MG EC TABLET PO SCH (08:28)
[2018-09-24] MEDS: ENOXAPARIN 40MG/0.4ML SYR SUBCUT SCH (08:28)
[2018-09-24 12:00] VITALS: BP 125/79
[2018-09-24 15:58] VITALS: BP 142/90
[2018-09-24 16:02] VITALS: BP 142/90
== END 2018-09-24 16:40 | disposition home or self-care (01) | DRG 111 ==
LOC: ER 15:16 → 8WST 23:10 → ENRESERV 09-13 01:43 → 8WST 09-14 15:21
PROVIDERS: ADMIT Internal Medicine; ATTEND Internal Medicine
DX: R42 Dizziness and giddiness (principal); G93.41 Metabolic encephalopathy; E87.2 Acidosis; I11.0 Hypertensive heart disease with heart failure; I50.9 Heart failure, unspecified; E86.0 Dehydration; E11.9 Type 2 diabetes mellitus without complications; F17.200 Nicotine dependence, unspecified, uncomplicated; M19.90 Unspecified osteoarthritis, unspecified site; I25.10 Atherosclerotic heart disease of native coronary artery without angina pectoris; Z79.899 Other long term (current) drug therapy; Z79.84 Long term (current) use of oral hypoglycemic drugs
CPT/HCPCS: 36415; 70496; 71045; 80048; 80061; 80305; 82550; 82962; 83605; 83880; 84439; 84443; 84484; 93005; 97116; 97162; 97530; 99285; G0482; J1650; J1815; J7030; J7050; Q9967

== ENCOUNTER 2018-10-20 18:54 | Emergency (ER) | payer MEDICARE, MEDICAID ==
[~2018-10-20] VITALS: Ht 172.7 cm; Wt 68.0 kg
[2018-10-21 01:25] LABS: BASOPHILS % 0.3 % (0.0-2.0); EOSINOPHILS % 0.1 % (0.0-5.0); HEMATOCRIT. 41.5 % (42.0-52.0); LYMPHOCYTES % 7.9 % (20.0-50.0); MEAN PLATELET VOLUME 9.5 fl (7.4-10.4); MONOCYTES % 9.1 % (2.0-8.0); NEUTROPHILS % 82.6 % (40.0-76.0); PLATELET 233 x1000/uL (130-400); RED BLOOD CELL COUNT 4.67 mill/uL (4.7-6.1); RED CELL DISTRIBUTION WIDTH 13.3 % (11.6-14.6)
[2018-10-21 01:26] LABS: CHLORIDE 104 mEq/L (98-107)
[2018-10-21 03:03] LABS: CLARITY URINE TURBID (CLEAR); COLOR URINE YELLOW (YELLOW); KETONES URINE NEGATIVE (NEGATIVE); LEUKOCYTE ESTERASE URINE 3+ (NEGATIVE); NITRITE URINE POSITIVE (NEGATIVE); OCCULT BLOOD URINE TRACE (NEGATIVE); PH URINE >=9.0 (4.5-8.0); PROTEIN URINE 2+ (NEGATIVE); SPECIFIC GRAVITY URINE 1.024 (1.005-1.030)
[2018-10-21 07:58] VITALS: BP 135/70
== END 2018-10-21 07:59 | disposition home or self-care (01) ==
LOC: ER 20:30
DX: N41.9 Inflammatory disease of prostate, unspecified (principal); N45.3 Epididymo-orchitis; N39.0 Urinary tract infection, site not specified; E11.9 Type 2 diabetes mellitus without complications; F17.210 Nicotine dependence, cigarettes, uncomplicated; Z91.14 Patient's other noncompliance with medication regimen
CPT/HCPCS: 36415; 76870; 87077; 87186; 93976; 99284

== ENCOUNTER 2018-11-15 00:11 | Emergency (ER) | payer MEDICARE, MEDICAID ==
[~2018-11-15] VITALS: Ht 170.2 cm; Wt 64.0 kg
[2018-11-15] MEDS ORDERED: TETANUS, DIPHTHERIA, PERTUSSIS VAC/PF 0.5ML (>7YR OLD) IM ONE (02:00)
[2018-11-15] MEDS ORDERED: MECLIZINE 25MG TABLET PO ONE (04:15)
[2018-11-15 04:40] VITALS: BP 156/90
== END 2018-11-15 05:02 | disposition home or self-care (01) ==
LOC: ER 00:11
DX: S50.01XA Contusion of right elbow, initial encounter (principal); R51 Headache; E11.9 Type 2 diabetes mellitus without complications; I10 Essential (primary) hypertension; F17.200 Nicotine dependence, unspecified, uncomplicated; Z79.899 Other long term (current) drug therapy; W01.0XXA Fall on same level from slipping, tripping and stumbling without subsequent striking against object, initial encounter; Y93.89 Activity, other specified; Y92.89 Other specified places as the place of occurrence of the external cause; Y99.8 Other external cause status
CPT/HCPCS: 70450; 82962; 90471; 90715; 99284; J8597

== ENCOUNTER 2018-11-19 20:36 | Emergency (ER) | payer MEDICARE, MEDICAID ==
[~2018-11-19] VITALS: Ht 177.8 cm; Wt 63.0 kg
[2018-11-20] MEDS ORDERED: SODIUM CHLORIDE 0.9% 1,000 ML IV ONE (01:17)
[2018-11-20 01:34] LABS: BASOPHILS % 0.6 % (0.0-2.0); EOSINOPHILS % 2.1 % (0.0-5.0); HEMATOCRIT. 39.3 % (42.0-52.0); HEMOGLOBIN. 13.4 g/dL (14.0-18.0); LYMPHOCYTES % 31.8 % (20.0-50.0); MEAN CORPUSCULAR HEMOGLOBIN 29.9 pg (28.0-32.0); MEAN CORPUSCULAR VOLUME 87.8 fL (80.0-94.0); MEAN PLATELET VOLUME 8.7 fl (7.4-10.4); MONOCYTES % 13.9 % (2.0-8.0); NEUTROPHILS % 51.6 % (40.0-76.0); PLATELET 253 x1000/uL (130-400); RED BLOOD CELL COUNT 4.47 mill/uL (4.7-6.1); RED CELL DISTRIBUTION WIDTH 13.5 % (11.6-14.6)
[2018-11-20 01:41] LABS: CHLORIDE 109 mEq/L (98-107)
[2018-11-20 05:15] VITALS: BP 151/86
[2018-11-20 05:50] LABS: CLARITY URINE TURBID (CLEAR); KETONES URINE NEGATIVE (NEGATIVE); LEUKOCYTE ESTERASE URINE 1+ (NEGATIVE); NITRITE URINE POSITIVE (NEGATIVE); OCCULT BLOOD URINE 3+ (NEGATIVE); PROTEIN URINE 4+ (NEGATIVE); SPECIFIC GRAVITY URINE 1.007 (1.005-1.030)
[2018-11-20 05:53] LABS: COLOR URINE YELLOW (YELLOW)
== END 2018-11-20 06:12 | disposition home or self-care (01) ==
LOC: ER 21:36
DX: R53.1 Weakness (principal); E11.65 Type 2 diabetes mellitus with hyperglycemia; F17.210 Nicotine dependence, cigarettes, uncomplicated; Z86.73 Personal history of transient ischemic attack (TIA), and cerebral infarction without residual deficits
CPT/HCPCS: 36415; 80053; 81003; 82962; 85025; 96360; 99283; J7030

== ENCOUNTER 2019-01-20 13:59 | Emergency (ER) | payer MEDICARE, MEDICAID ==
[~2019-01-20] VITALS: Ht 175.3 cm; Wt 65.0 kg
[2019-01-20] MEDS ORDERED: SODIUM CHLORIDE 0.9% 1,000 ML IV ONE (14:34)
[2019-01-20 15:15] LABS: BASOPHILS % 0.8 % (0.0-2.0); EOSINOPHILS % 1.4 % (0.0-5.0); HEMATOCRIT. 37.8 % (42.0-52.0); HEMOGLOBIN. 12.7 g/dL (14.0-18.0); LYMPHOCYTES % 25.7 % (20.0-50.0); MEAN CORPUSCULAR HEMOGLOBIN 29.3 pg (28.0-32.0); MEAN CORPUSCULAR VOLUME 87.5 fL (80.0-94.0); MEAN PLATELET VOLUME 8.9 fl (7.4-10.4); MONOCYTES % 10.4 % (2.0-8.0); NEUTROPHILS % 61.7 % (40.0-76.0); PLATELET 230 x1000/uL (130-400); RED BLOOD CELL COUNT 4.32 mill/uL (4.7-6.1); RED CELL DISTRIBUTION WIDTH 13.7 % (11.6-14.6)
[2019-01-20 15:20] LABS: PARTIAL THROMBOPLASTIN TIME 26.1 sec (23.4-31.0); PROTHROMBIN TIME 10.3 sec (9.6-11.0)
[2019-01-20 15:22] LABS: CHLORIDE 111 mEq/L (98-107)
[2019-01-20 15:29] LABS: ETHANOL BLOOD < 10 mg/dL
[2019-01-20 17:50] LABS: CLARITY URINE CLEAR (CLEAR); COLOR URINE YELLOW (YELLOW); KETONES URINE NEGATIVE (NEGATIVE); LEUKOCYTE ESTERASE URINE NEGATIVE (NEGATIVE); NITRITE URINE NEGATIVE (NEGATIVE); OCCULT BLOOD URINE NEGATIVE (NEGATIVE); PROTEIN URINE NEGATIVE (NEGATIVE); SPECIFIC GRAVITY URINE 1.014 (1.005-1.030)
[2019-01-20 18:09] LABS: *AMPHETAMINES SCREEN URINE NEGATIVE (NEGATIVE); *BARBITURATES SCREEN URINE NEGATIVE (NEGATIVE); *BENZODIAZEPINES SCREEN URINE NEGATIVE (NEGATIVE); *COCAINE SCREEN URINE NEGATIVE (NEGATIVE); METHADONE URINE SCREEN NEGATIVE (NEGATIVE); OPIATES URINE SCREEN NEGATIVE (NEGATIVE)
[2019-01-20 18:10] LABS: CANNABINOID URINE SCREEN NEGATIVE (NEGATIVE); PHENCYCLIDINE URINE SCREEN NEGATIVE (NEGATIVE)
[2019-01-20 20:33] VITALS: BP 168/85
== END 2019-01-20 21:08 | disposition short-term general hospital (02) ==
LOC: ER 14:09 → CANBEDREQ 22:22
DX: R42 Dizziness and giddiness (principal); R53.1 Weakness; E86.0 Dehydration; E11.9 Type 2 diabetes mellitus without complications; Z59.0 Homelessness; Z86.73 Personal history of transient ischemic attack (TIA), and cerebral infarction without residual deficits
CPT/HCPCS: 36415; 70450; 71045; 80053; 80305; 80320; 81003; 82962; 83605; 83690; 83880; 84484; 85025; 85610; 85730; 87040; 87086; 93005; 96360; 99285; J7030; Z7610; G0480

== ENCOUNTER 2019-01-27 17:00 | Emergency (ER) | payer MEDICARE, MEDICAID ==
[~2019-01-27] VITALS: Ht 172.7 cm; Wt 63.0 kg
[2019-01-27] MEDS ORDERED: MECLIZINE 25MG TABLET PO ONE (19:30)
[2019-01-27] MEDS ORDERED: SODIUM CHLORIDE 0.9% 1,000 ML IV ONE (19:30)
[2019-01-27] MEDS ORDERED: HYDRALAZINE 20MG/ML VIAL IV ONE (19:30)
[2019-01-27] MEDS ORDERED: ONDANSETRON HCL 4MG/2ML INJ IV STA (19:30)
[2019-01-27 20:02] LABS: BASOPHILS % 0.8 % (0.0-2.0); EOSINOPHILS % 1.3 % (0.0-5.0); HEMATOCRIT. 36.2 % (42.0-52.0); HEMOGLOBIN. 12.5 g/dL (14.0-18.0); MEAN CORPUSCULAR HEMOGLOBIN 29.9 pg (28.0-32.0); MEAN CORPUSCULAR VOLUME 86.4 fL (80.0-94.0); MEAN PLATELET VOLUME 8.9 fl (7.4-10.4); MONOCYTES % 13.7 % (2.0-8.0); NEUTROPHILS % 51.2 % (40.0-76.0); PLATELET 201 x1000/uL (130-400); RED BLOOD CELL COUNT 4.19 mill/uL (4.7-6.1); RED CELL DISTRIBUTION WIDTH 13.8 % (11.6-14.6)
[2019-01-27 20:07] LABS: CHLORIDE 112 mEq/L (98-107)
[2019-01-27 20:14] LABS: ETHANOL BLOOD < 10 mg/dL
[2019-01-27 20:18] LABS: CREATINE KINASE 90 IU/L (39-308)
[2019-01-27 20:21] LABS: CREATINE KINASE MB FRACTION 1.5 ng/mL (0.5-3.6)
[2019-01-27 21:03] LABS: *AMPHETAMINES SCREEN URINE NEGATIVE (NEGATIVE); *BARBITURATES SCREEN URINE NEGATIVE (NEGATIVE); *BENZODIAZEPINES SCREEN URINE NEGATIVE (NEGATIVE); *COCAINE SCREEN URINE NEGATIVE (NEGATIVE); METHADONE URINE SCREEN NEGATIVE (NEGATIVE)
[2019-01-27 21:05] LABS: CANNABINOID URINE SCREEN NEGATIVE (NEGATIVE); OPIATES URINE SCREEN NEGATIVE (NEGATIVE); PHENCYCLIDINE URINE SCREEN NEGATIVE (NEGATIVE)
[2019-01-27] MEDS ORDERED: ACETAMINOPHEN 325MG TABLET PO ONE (23:15)
[2019-01-27] MEDS ORDERED: IBUPROFEN 600MG TABLET PO ONE (23:15)
[2019-01-28 13:39] VITALS: BP 138/84
== END 2019-01-28 13:40 | disposition home or self-care (01) ==
LOC: ER 17:00
DX: E86.0 Dehydration (principal); I10 Essential (primary) hypertension; E11.9 Type 2 diabetes mellitus without complications; R94.31 Abnormal electrocardiogram [ECG] [EKG]; Z59.0 Homelessness
CPT/HCPCS: 36415; 71045; 80053; 80305; 80320; 82550; 82553; 83690; 84484; 85025; 93005; 96361; 96374; 96375; 99284; J0360; J2405; J7030; J8597; G0480

== ENCOUNTER 2019-01-30 14:44 | Emergency (ER) | payer MEDICARE, MEDICAID ==
[~2019-01-30] VITALS: Ht 162.6 cm; Wt 54.0 kg
[2019-01-30 14:48] VITALS: BP 134/93
== END 2019-01-30 22:56 | disposition left against medical advice (07) ==
LOC: ER 14:44
DX: M54.9 Dorsalgia, unspecified (principal); Z53.21 Procedure and treatment not carried out due to patient leaving prior to being seen by health care provider

== ENCOUNTER 2019-02-14 19:33 | Emergency (ER) | payer MEDICARE, MEDICAID ==
[~2019-02-14] VITALS: Ht 172.7 cm; Wt 66.0 kg
[2019-02-14 20:55] LABS: CHLORIDE 109 mEq/L (98-107)
[2019-02-14 20:56] LABS: HEMATOCRIT. 38.6 % (42.0-52.0); HEMOGLOBIN. 13.6 g/dL (14.0-18.0); LYMPHOCYTES % 33.1 % (20.0-50.0); MEAN CORPUSCULAR HEMOGLOBIN 30.1 pg (28.0-32.0); MEAN CORPUSCULAR VOLUME 85.6 fL (80.0-94.0); MEAN PLATELET VOLUME 9.6 fl (7.4-10.4); MONOCYTES % 11.3 % (2.0-8.0); NEUTROPHILS % 53.6 % (40.0-76.0); PLATELET 208 x1000/uL (130-400); RED BLOOD CELL COUNT 4.51 mill/uL (4.7-6.1)
[2019-02-14 20:58] LABS: ETHANOL BLOOD < 10 mg/dL
[2019-02-14 22:59] LABS: CLARITY URINE CLEAR (CLEAR); COLOR URINE YELLOW (YELLOW); KETONES URINE TRACE (NEGATIVE); LEUKOCYTE ESTERASE URINE NEGATIVE (NEGATIVE); NITRITE URINE NEGATIVE (NEGATIVE); OCCULT BLOOD URINE NEGATIVE (NEGATIVE); PH URINE 5.5 (4.5-8.0); PROTEIN URINE NEGATIVE (NEGATIVE); SPECIFIC GRAVITY URINE 1.024 (1.005-1.030)
[2019-02-14 23:10] LABS: *AMPHETAMINES SCREEN URINE NEGATIVE (NEGATIVE); *BARBITURATES SCREEN URINE NEGATIVE (NEGATIVE); *BENZODIAZEPINES SCREEN URINE NEGATIVE (NEGATIVE); *COCAINE SCREEN URINE NEGATIVE (NEGATIVE); METHADONE URINE SCREEN NEGATIVE (NEGATIVE); OPIATES URINE SCREEN NEGATIVE (NEGATIVE)
[2019-02-14 23:11] LABS: CANNABINOID URINE SCREEN NEGATIVE (NEGATIVE); PHENCYCLIDINE URINE SCREEN NEGATIVE (NEGATIVE)
[2019-02-15] MEDS ORDERED: ACETAMINOPHEN 325MG TABLET PO ONE (01:45)
[2019-02-15] MEDS ORDERED: ACETAMINOPHEN 325MG TABLET PO SCH (02:00)
[2019-02-15 02:13] VITALS: BP 153/77
== END 2019-02-15 02:16 | disposition short-term general hospital (02) ==
LOC: ER 21:33
DX: R42 Dizziness and giddiness (principal); E11.9 Type 2 diabetes mellitus without complications
CPT/HCPCS: 36415; 71045; 80305; 80320; 82140; 82962; 83880; 84484; 93005; 99285; G0480

== ENCOUNTER 2019-02-28 16:51 | Emergency (ER) | payer MEDICARE, MEDICAID ==
[~2019-02-28] VITALS: Ht 177.8 cm; Wt 65.0 kg
[2019-02-28] MEDS ORDERED: IBUPROFEN 600MG TABLET PO STA (19:53)
[2019-02-28 20:35] LABS: BASOPHILS % 0.7 % (0.0-2.0); HEMATOCRIT. 43.2 % (42.0-52.0); HEMOGLOBIN. 14.6 g/dL (14.0-18.0); LYMPHOCYTES % 38.2 % (20.0-50.0); MEAN CORPUSCULAR HEMOGLOBIN 29.6 pg (28.0-32.0); MEAN CORPUSCULAR VOLUME 87.5 fL (80.0-94.0); MEAN PLATELET VOLUME 9.4 fl (7.4-10.4); MONOCYTES % 11.3 % (2.0-8.0); NEUTROPHILS % 48.8 % (40.0-76.0); PLATELET 216 x1000/uL (130-400); RED BLOOD CELL COUNT 4.94 mill/uL (4.7-6.1); RED CELL DISTRIBUTION WIDTH 14.1 % (11.6-14.6)
[2019-02-28 20:40] LABS: CHLORIDE 109 mEq/L (98-107)
[2019-02-28 20:44] LABS: ETHANOL BLOOD < 10 mg/dL
[2019-02-28 20:45] LABS: CLARITY URINE CLEAR (CLEAR); COLOR URINE DARK YELLOW (YELLOW); KETONES URINE TRACE (NEGATIVE); LEUKOCYTE ESTERASE URINE NEGATIVE (NEGATIVE); NITRITE URINE NEGATIVE (NEGATIVE); OCCULT BLOOD URINE NEGATIVE (NEGATIVE); PROTEIN URINE TRACE (NEGATIVE); SPECIFIC GRAVITY URINE 1.028 (1.005-1.030)
[2019-02-28 21:05] LABS: *AMPHETAMINES SCREEN URINE NEGATIVE (NEGATIVE); *BARBITURATES SCREEN URINE NEGATIVE (NEGATIVE); *BENZODIAZEPINES SCREEN URINE NEGATIVE (NEGATIVE); *COCAINE SCREEN URINE PRESUMTIVE POSITIVE (NEGATIVE); METHADONE URINE SCREEN NEGATIVE (NEGATIVE); OPIATES URINE SCREEN NEGATIVE (NEGATIVE)
[2019-02-28 21:06] LABS: CANNABINOID URINE SCREEN NEGATIVE (NEGATIVE); PHENCYCLIDINE URINE SCREEN NEGATIVE (NEGATIVE)
[2019-02-28 22:12] VITALS: BP 114/84
== END 2019-02-28 22:13 | disposition home or self-care (01) ==
LOC: ER 16:51
DX: R51 Headache (principal); M60.9 Myositis, unspecified; M79.605 Pain in left leg; M79.604 Pain in right leg; F14.10 Cocaine abuse, uncomplicated; M19.90 Unspecified osteoarthritis, unspecified site; E11.9 Type 2 diabetes mellitus without complications; Z79.899 Other long term (current) drug therapy
CPT/HCPCS: 36415; 80048; 80305; 80320; 99283; G0480

== ENCOUNTER 2019-05-07 15:40 | Emergency (ER) | payer MEDICARE, MEDICAID ==
[~2019-05-07] VITALS: Ht 165.1 cm; Wt 61.0 kg
[2019-05-07] MEDS ORDERED: SODIUM CHLORIDE 0.9% 1,000 ML IV ONE (17:26)
[2019-05-07] MEDS ORDERED: TRAMADOL 50MG TABLET PO ONE (17:30)
[2019-05-07 17:47] LABS: BASOPHILS % 0.5 % (0.0-2.0); EOSINOPHILS % 1.3 % (0.0-5.0); HEMATOCRIT. 41.9 % (42.0-52.0); HEMOGLOBIN. 14.3 g/dL (14.0-18.0); LYMPHOCYTES % 36.3 % (20.0-50.0); MEAN CORPUSCULAR HEMOGLOBIN 28.9 pg (28.0-32.0); MEAN CORPUSCULAR VOLUME 84.7 fL (80.0-94.0); MEAN PLATELET VOLUME 8.7 fl (7.4-10.4); MONOCYTES % 11.3 % (2.0-8.0); NEUTROPHILS % 50.6 % (40.0-76.0); PLATELET 234 x1000/uL (130-400); RED BLOOD CELL COUNT 4.94 mill/uL (4.7-6.1); RED CELL DISTRIBUTION WIDTH 13.4 % (11.6-14.6)
[2019-05-07 17:50] LABS: CHLORIDE 109 mEq/L (98-107)
[2019-05-07 17:54] LABS: ETHANOL BLOOD < 10 mg/dL
[2019-05-07 17:58] LABS: *AMPHETAMINES SCREEN URINE NEGATIVE (NEGATIVE); *BARBITURATES SCREEN URINE NEGATIVE (NEGATIVE); *BENZODIAZEPINES SCREEN URINE NEGATIVE (NEGATIVE); *COCAINE SCREEN URINE NEGATIVE (NEGATIVE); METHADONE URINE SCREEN NEGATIVE (NEGATIVE); OPIATES URINE SCREEN NEGATIVE (NEGATIVE)
[2019-05-07 17:59] LABS: CANNABINOID URINE SCREEN NEGATIVE (NEGATIVE); PHENCYCLIDINE URINE SCREEN NEGATIVE (NEGATIVE)
[2019-05-08 13:57] VITALS: BP 145/78
== END 2019-05-08 14:22 | disposition home or self-care (01) ==
LOC: ER 15:40
DX: M54.5 Low back pain (principal); G89.29 Other chronic pain; M79.662 Pain in left lower leg; M79.661 Pain in right lower leg; S09.8XXA Other specified injuries of head, initial encounter; E11.9 Type 2 diabetes mellitus without complications; E78.00 Pure hypercholesterolemia, unspecified; I10 Essential (primary) hypertension; F17.200 Nicotine dependence, unspecified, uncomplicated; W19.XXXA Unspecified fall, initial encounter; Y93.9 Activity, unspecified; Y92.9 Unspecified place or not applicable; Z71.6 Tobacco abuse counseling
CPT/HCPCS: 36415; 70450; 80053; 80305; 80320; 82962; 83690; 84484; 85025; 93970; 99284; 99406; J7030; G0480